=== PATIENT | female | born 1990 | race Caucasian/White ===

== ENCOUNTER 2023-02-24 07:23 | Day surgery (SDC) | payer OTHER, SELFPAY ==
[2023-02-24] MEDS ORDERED: Sodium Chloride 0.9% 100 ML ONE (07:39)
[2023-02-24] MEDS ORDERED: Piperacillin/Tazobactam 3.375 GM VIAL ONE (07:39)
[2023-02-24] MEDS ORDERED: EPINEPHrine 1 MG/ML AMP ONE (10:30)
[2023-02-24] MEDS ORDERED: fentaNYL PF 100 MCG/2 ML SYRINGE ONE (10:30)
[2023-02-24] MEDS ORDERED: Bupivacaine 0.25% HCL 30 ML VIAL ONE (10:30)
[2023-02-24] MEDS ORDERED: Dexamethasone 20 MG/5 ML VIAL ONE (10:54)
[2023-02-24] MEDS ORDERED: Rocuronium Bromide 10 MG/ML (10ML VIAL) ONE (10:54)
[2023-02-24] MEDS ORDERED: Succinylcholine 200 MG/10 ml SYRINGE FS ONE (10:54)
[2023-02-24] MEDS ORDERED: PROPOFOL 200 MG/20 ML VIAL ONE (10:54)
[2023-02-24] MEDS ORDERED: Lidocaine 1% PF 5 ML VIAL ONE (10:54)
[2023-02-24] MEDS ORDERED: ePHEDrine Sulfate 50 MG/10 ML VIAL ONE (10:54)
[2023-02-24] MEDS ORDERED: Ondansetron PF 4 MG/2 ML Vial ONE (10:54)
[2023-02-24] MEDS ORDERED: Meperidine HCl/PF 25 MG/ML VIAL ONE (11:54)
[2023-02-24] MEDS ORDERED: fentaNYL 50 mcg/mL 1 mL Vial ONE ×3 (11:58→12:29)
== END 2023-02-24 14:10 | disposition home or self-care (01) ==
LOC: SDC 07:23
PROVIDERS: ATTEND Surgery
PROC: 0DTJ4ZZ Resection of Appendix, Percutaneous Endoscopic Approach (ICD-10-PCS; principal; 2023-02-24)
DX: K35.30 Acute appendicitis with localized peritonitis, without perforation or gangrene (principal); Z88.0 Allergy status to penicillin
CPT/HCPCS: 88304; A4649; C1776; C1889; J0171; J1100; J2175; J2405; J2543; J2704; J3010; J3490; S0020